=== PATIENT | female | born 1995 | race Caucasian/White ===

== ENCOUNTER 2020-04-17 13:19 | Emergency (ER) | payer MEDICAID, OTHER ==
[~2020-04-17] VITALS: Ht 160 cm; Wt 80.0 kg
[~2020-04-17 13:19] MED LIST: CARI350T PO; HYDR-4383 PO
[2020-04-17 13:53] VITALS: BP 133/74
== END 2020-04-17 14:48 | disposition home or self-care (01) ==
LOC: ER 13:20
DX: U07.1 COVID-19 (principal); J45.909 Unspecified asthma, uncomplicated; F12.90 Cannabis use, unspecified, uncomplicated; F15.90 Other stimulant use, unspecified, uncomplicated; Z91.010 Allergy to peanuts; Z91.013 Allergy to seafood; Z79.899 Other long term (current) drug therapy
CPT/HCPCS: 36415; 87635; 99283

== ENCOUNTER 2020-12-17 22:08 | Emergency (ER) | payer OTHER ==
[~2020-12-17] VITALS: Ht 160 cm; Wt 78.6 kg
[2020-12-17 22:36] VITALS: BP 131/84
--- NOTE | 2020-12-17 23:26 | NUR ---
PATIENT WAITING OUTSIDE
== END 2020-12-18 05:41 | disposition left against medical advice (07) ==
LOC: ER 22:09
DX: R06.02 Shortness of breath (principal); Z53.21 Procedure and treatment not carried out due to patient leaving prior to being seen by health care provider

== ENCOUNTER 2021-05-07 21:46 | Emergency (ER) | payer MEDICAID, OTHER ==
[~2021-05-07] VITALS: Ht 160 cm; Wt 81.8 kg
[2021-05-07] MEDS ORDERED: triamcinolone acetonide 40mg/ml inj IM ONE (22:55)
[2021-05-07] MEDS ORDERED: amox tr/potassium clavulanate 875/125mg TAB PO ONE (22:55)
[2021-05-07] MEDS ORDERED: AMOX-422 PO (22:57)
[2021-05-07] MEDS ORDERED: PRED20TA PO (22:57)
[2021-05-08 00:10] VITALS: BP 116/79
== END 2021-05-08 00:12 | disposition home or self-care (01) ==
LOC: ER 21:46
DX: L50.9 Urticaria, unspecified (principal); K04.7 Periapical abscess without sinus; J45.909 Unspecified asthma, uncomplicated; F12.90 Cannabis use, unspecified, uncomplicated; F15.90 Other stimulant use, unspecified, uncomplicated; Z91.010 Allergy to peanuts; Z91.013 Allergy to seafood; Z79.2 Long term (current) use of antibiotics; Z79.899 Other long term (current) drug therapy
CPT/HCPCS: 96372; 99283; J3301

== ENCOUNTER 2021-12-29 18:59 | Emergency (ER) | payer MEDICAID ==
[~2021-12-29] VITALS: Ht 160 cm; Wt 84.1 kg
[2021-12-29 19:40] VITALS: BP 115/69
[2021-12-29] MEDS ORDERED: HYDR28CR14 TOP (20:14)
[2021-12-29] MEDS ORDERED: PRED10TA23 PO (20:14)
== END 2021-12-29 20:41 | disposition home or self-care (01) ==
LOC: ER 19:00
DX: R21 Rash and other nonspecific skin eruption (principal); L30.9 Dermatitis, unspecified; J45.909 Unspecified asthma, uncomplicated; F12.90 Cannabis use, unspecified, uncomplicated; F15.20 Other stimulant dependence, uncomplicated; Z91.010 Allergy to peanuts; Z91.013 Allergy to seafood
CPT/HCPCS: 99283

== ENCOUNTER 2025-05-22 19:14 | Emergency (ER) | payer MEDICAID, OTHER ==
[~2025-05-22] VITALS: Ht 160 cm; Wt 75.0 kg
[~2025-05-22 19:14] MED LIST changes: +HYDR28CR14 TOP
--- NOTE | 2025-05-22 19:29 | Physician Documentation ---
History of Present Illness ~ Chief Complaint: Rash Stated Complaint: ALLERGIC REACTION Time Seen by MD: 20:46 Primary Medical Doctor: NONE HPI This is a 30-year-old female with a history of eczema who presents with an eczema flare-up and rash to her forearms extending to her entire body, patient reports he is out of her normally prescribed steroid cream for eczema. Reports no shortness of breath or difficulty breathing. Medication Reconciliation Allergies: Coded Allergies: peanut (Verified Allergy, Unknown, 12/17/20) shellfish derived (Unverified Allergy, Unknown, 12/17/20) Scheduled Hydrocortisone (hydrocortisone 1% cream), 1 APPLIC TOP Q12H Scheduled PRN Carisoprodol (Soma), 1 TABLET PO Q8H PRN for muscle spasms Hydrocodone/Acetaminophen ([place] 5-325 Tablet), 1 TABLET PO Q8H PRN for pain Past Medical History Past Medical History: Asthma, Eczema Past Surgical History: noncontributory Alcohol Use: None Drug Use: marijuana, methamphetamine Lives In: Home Review of Systems ROS As stated above in the HPI, otherwise all systems are reviewed and negative. Physical Exam Vital Signs: RN Vital Signs have been reviewed: Yes, Temperature: 97.7, Heart Rate: 79, Respiratory Rate: 16, BP: 119/80, Pulse Oximetry: 99, Weight: 75.000 Oxygen Flow Rate: 0 Physical Exam VITALS: Reviewed and as above. GENERAL: Alert, nontoxic appearing, no apparent distress. HEENT: RESPIRATORY: No increased work of breathing, no respiratory distress, speaking in full clear sentences CHEST: CV: BACK: GI: MUSCULOSKELETAL: SKIN: Diffuse erythematous rash with excoriations to bilateral forearms NEURO: PSYCH: General Appearance: alert, WD/WN, moderate distress Eyes, Ears: normal ENT inspection Tongue: normal inspection Buccal Mucosa: normal inspection Palate: normal inspection Pharynx: normal inspection Neck: non-tender Respiratory: lungs clear Cardiovascular: normal peripheral pulses Skin: other (dry erythemic scaly bilat forearms) Neurologic: oriented x4 Psychiatric: normal mood/affect Lymphatic: no adenopathy Progress Results/Orders Results/Orders Completed Orders - VELMA GALVEZ Triamcinolone Acet 40mg/Ml Inj (Kenalog- (05/22/25 20:40) Diphenhydramine Inj (Benadryl Inj.) (05/22/25 20:40) Medications Received in ER Medications (Trade) Dose Ordered Sig/Stephani Route PRN Reason Start Time Stop Time Status Last Admin Dose Admin (Kenalog-40 inj) 40 mg ONCE ONCE IM 05/22/25 20:40 05/22/25 20:50 DC 05/22/25 21:02 40 MG (Benadryl inj.) 50 mg ONCE ONCE IM 05/22/25 20:40 05/22/25 20:41 DC 05/22/25 21:00 50 MG Vital Signs 05/22/25 19:18 Temp 97.7 Pulse 79 Resp 16 B/P (MAP) 119/80 Pulse Ox 99 O2 Flow Rate 0 Medical Decision Making Additional information obtaine: N/A Findings MSE performed in triage and patient returned to ED lobby by nursing staff to await available ED room. Examination history consistent with a atopic flare requiring Kenalog and Benadryl in the emergency department. Outpatient prescriptions. No obvious secondary infection. Differential Dx:Considerations: Include: Atopic dermatitis, Contact dermatitis, Drug reaction, Erysipelas, Impetigo, Psoriaisis, Viral exanthema Departure Disposition: HOME / SELF CARE / HOMELESS Impression: Primary Impression: Eczema of both upper extremities Condition: Improved Discharge Instructions: Atopic Dermatitis, Eczema Additional Instructions: Please obtain prescriptions and begin as directed. In the emergency department tonight you received an injection of Kenalog and Benadryl. 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 Thank you for visiting [facility]. Referrals: NO PRIMARY CARE PROVIDER (PCP) Prescriptions Triamcinolone Acetonide 0.5% Crm* (Kenalog 0.5% Crm*) 15 Gm Tube 1 APPLIC TOP Q12H for 30 Days, #30 GM apply to affected area(s) Prov: VELMA GALVEZ PAC 05/22/25 Diphenhydramine HCl (Benadryl) 25 Mg Capsule 1 CAP PO Q6H for 10 Days, #30 CAP 0 Refills Prov: VELMA GALVEZ 05/22/25 Prednisone* (Prednisone*) 20 Mg Tablet 2 TAB PO DAILY, #10 TAB Prov: VELMA GALVEZ PAC 05/22/25 Education Educated: Patient Educated regarding: diagnosis, treatment, prognosis, need for follow up Signature Scribe Signature: . Attestation: . ELAN GORMAN [facility] May 22, 2025 19:[address] [facility] May 22, 2025 21:29
[2025-05-22] MEDS: triamcinolone acetonide 40mg/ml inj IM ONE (21:02)
[2025-05-22] MEDS ORDERED: TRIA15CR61 TOP (21:28)
[2025-05-22] MEDS ORDERED: PRED20TA PO (21:28)
[2025-05-22] MEDS ORDERED: DIPH25CA83 PO (21:28)
[2025-05-22 21:37] VITALS: BP 118/79; PULSE 76; RESP 18; TEMP 98.6; O2SAT 99
== END 2025-05-22 21:37 | disposition home or self-care (01) ==
LOC: ER 19:15
DX: L30.9 Dermatitis, unspecified (principal); F12.90 Cannabis use, unspecified, uncomplicated; F15.90 Other stimulant use, unspecified, uncomplicated; Z91.010 Allergy to peanuts; Z91.013 Allergy to seafood; Z79.899 Other long term (current) drug therapy
CPT/HCPCS: 96372; 99284; J1200; J3301